=== PATIENT | male | born 1955 | race Caucasian/White ===

== ENCOUNTER → 2024-12-20 | Outpatient (REF) | payer OTHER ==
[~2024-12-20] MED LIST: ASPIR 8181 MG PO; CENTRUM SILVER1 EAC1 PO; CRANBERRY200 MG; FISH OIL PO; FLOMAX0.4 MG PO; HYDROCHLOROTHIA25 MG PO; JANUVIA50 MG PO; KERENDIA10 MG PO; LIPITOR20 MG PO; LISINOPRIL-HCT1 EACH PO; LISINOPRIL10 MG PO; LOSARTAN POTAS100 MG PO; LUPRON DEPOT3.75 MG; LYRICA50 MG PO; METFORMIN HCL500 MG PO; PROBIOTIC & AC1 EACH PO; PROTONIX20 MG PO; VITAMIN B COMP1 EACH; VITAMIN C1000 MG PO; XTANDI40 M1 PO
[2024-12-20 09:47] LABS: BASOPHILS % 0.6 % (0.0-1.0); EOSINOPHILS # (AUTO) 0.3 (0.0-0.4); EOSINOPHILS % 3.5 % (0.0-6.0); HEMOGLOBIN 11.8 g/dL (14.0-18.0); LYMPHOCYTES # (AUTO) 1.7 (1.0-3.2); LYMPHOCYTES % 23.4 % (18.0-39.1); MEAN CORPUSCULAR HEMOGLOBIN 28.9 pg (28-32); MEAN CORPUSCULAR HGB CONC 33.7 g/dL (31-35); MEAN CORPUSCULAR VOLUME 85.8 fL (81-99); MONOCYTES # (AUTO) 0.5 (0.2-0.8); MONOCYTES % 6.9 % (4.4-11.3); NEUTROPHILS # (AUTO) 4.6 (2.1-6.9); NEUTROPHILS % 65.2 % (38.7-80.0); PLATELET COUNT 268 x10e3/uL (140-360); RED BLOOD COUNT 4.08 x10e6/uL (4.3-5.7); RED CELL DISTRIBUTION WIDTH 12.6 % (11.7-14.4); WHITE BLOOD COUNT 7.09 x10e3/uL (4.8-10.8)
[2024-12-20 09:56] LABS: INR 0.95; PROTHROMBIN TIME 13.3 seconds (11.9-14.5)
[2024-12-20 10:12] LABS: ANION GAP 12.2 mmol/L (8-16); CALCIUM 9.5 mg/dL (8.4-10.2); POTASSIUM 4.2 mmol/L (3.5-5.1)
== END ==
LOC: RAD 11:38 → EDSTATUS 12-27 08:00
PROVIDERS: ATTEND Internal Medicine Gastroenterology
DX: Z01.818 Encounter for other preprocedural examination (principal); K22.70 Barrett's esophagus without dysplasia; R19.7 Diarrhea, unspecified; K59.00 Constipation, unspecified; Z86.0100 Personal history of colon polyps, unspecified
CPT/HCPCS: 36415; 80048; 85025; 85610; 85730; 93005